=== PATIENT | male | born 1995 | race African-American/Black ===

== ENCOUNTER 2018-02-04 01:58 | Emergency (ER) | payer OTHER ==
[~2018-02-04] VITALS: Ht 182.9 cm; Wt 79.0 kg
[~2018-02-04 01:58] MED LIST: INSU3INS7; INSULIN
[2018-02-04 03:07] LABS: BASOPHILS % 0.3 % (0.0-2.0); EOSINOPHILS % 0.1 % (0.0-5.0); HEMATOCRIT. 50.3 % (42.0-52.0); HEMOGLOBIN. 16.9 g/dL (14.0-18.0); LYMPHOCYTES % 7.6 % (20.0-50.0); MEAN CORPUSCULAR HEMOGLOBIN 29.5 pg (28.0-32.0); MEAN CORPUSCULAR VOLUME 87.6 fL (80.0-94.0); MEAN PLATELET VOLUME 9.1 fl (7.4-10.4); MONOCYTES % 2.5 % (2.0-8.0); NEUTROPHILS % 89.5 % (40.0-76.0); PLATELET 212 x1000/uL (130-400); RED BLOOD CELL COUNT 5.74 mill/uL (4.7-6.1); RED CELL DISTRIBUTION WIDTH 13.4 % (11.6-14.6)
[2018-02-04 03:12] LABS: CHLORIDE 107 mEq/L (98-107)
[2018-02-04 05:14] VITALS: BP 111/82
== END 2018-02-04 05:15 | disposition home or self-care (01) ==
LOC: ER 01:58
DX: E11.649 Type 2 diabetes mellitus with hypoglycemia without coma (principal); G40.909 Epilepsy, unspecified, not intractable, without status epilepticus; S01.512A Laceration without foreign body of oral cavity, initial encounter; X58.XXXA Exposure to other specified factors, initial encounter; Y93.89 Activity, other specified; Y92.092 Bedroom in other non-institutional residence as the place of occurrence of the external cause; Z79.4 Long term (current) use of insulin
CPT/HCPCS: 36415; 80053; 82962; 85025; 99284